=== PATIENT | female | born 1965 | race African-American/Black ===

== ENCOUNTER 2016-09-27 19:37 | Emergency (ER) | payer OTHER ==
[~2016-09-27] VITALS: Ht 162.6 cm; Wt 94.3 kg
[2016-09-27 20:00] VITALS: BP 111/66
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
[2016-09-27] MEDS ORDERED: IBUPROFEN600 MG ORAL (21:28)
[2016-09-27] MEDS ORDERED: CYCLOBENZAPRINE10 MG ORAL (21:28)
[2016-09-27 21:56] VITALS: BP 111/66
--- NOTE | 2016-09-28 11:37 | Diagnostic Imaging Report ---
Indication: PAIN Technique: One view of the chest Comparison: none Findings: Lungs and pleural spaces are clear. Heart size is normal. Impression: No acute process
== END 2016-09-27 21:56 | disposition home or self-care (01) ==
LOC: EMR 20:30
DX: S16.1XXA Strain of muscle, fascia and tendon at neck level, initial encounter (principal); S20.219A Contusion of unspecified front wall of thorax, initial encounter; S39.012A Strain of muscle, fascia and tendon of lower back, initial encounter; V43.62XA Car passenger injured in collision with other type car in traffic accident, initial encounter; Y93.9 Activity, unspecified; Y92.410 Unspecified street and highway as the place of occurrence of the external cause
CPT/HCPCS: 71010; 82962; 99284

== ENCOUNTER 2017-02-24 06:55 | Emergency (ER) | payer OTHER ==
[~2017-02-24] VITALS: Ht 162.6 cm; Wt 90.7 kg
[~2017-02-24 06:55] MED LIST: CYCLOBENZAPRINE10 MG ORAL; IBUPROFEN600 MG ORAL
[2017-02-24 07:05] VITALS: BP 141/98
--- NOTE | 2017-02-24 07:13 | Emergency Room Report ---
History of Present Illness General Chief Complaint: Asthma Source: Patient Present Illness HPI Patient 51year old female presented after increased difficulty breathing. Patient prior history of COPD. The patient denies taking inhalers regularly. Patient states that she is a smoker but hasn't smoked for the past few days. She denies any vomiting or diarrhea. Allergies: Coded Allergies: No Known Allergies (Unverified , 09/27/16) Patient History Past Medical History: see triage record Past Surgical History: Last Menstrual Period: n/a Reviewed Nursing Documentation: PMH: Agreed, PSxH: Agreed Nursing Documentation-PMH Hx Asthma: Yes Review of Systems All Other Systems: negative except mentioned in HPI Physical Exam Vital Signs Date Time Temp Pulse Resp B/P (MAP) Pulse Ox O2 Delivery O2 Flow Rate FiO2 02/24/17 07:03 98.1 87 21 153/99 100 Room Air General Appearance: well appearing, no apparent distress, alert, GCS 15, non- toxic Head: normocephalic, atraumatic ENT: hearing grossly normal, normal voice Neck: full range of motion, supple Respiratory: no rhonchi, no respiratory distress, wheezing Cardiovascular #1: normal peripheral pulses, regular rate, rhythm, no edema Gastrointestinal: normal inspection Musculoskeletal: normal inspection, back normal, no calf tenderness Neurologic: normal gait Psychiatric: mood/affect normal Skin: no rash Medical Decision Making Diagnostic Impression: Primary Impression: Asthma attack ER Course Patient presented for shortness of breath.Differential included but was not limited to anemia, pneumonia, pneumothorax, myocardial infarction, pericardial effusion, congestive heart failure, acidosis. Because of complexity of patient' s case laboratory testing and imaging studies were ordered. Patient's benign exam and does not appear to require any imaging or laboratory testing at this time. The patient was noted to have prior history of asthma. Patient is given nebulized albuterol with improvement. Patient was given steroids. Repeat lung exam showed improved breath sounds.At the time of discharge patient was noted to have good air movement. The patient is advised to follow up with primary care doctor in 1-2 days. Patient is advised to return if any worsening condition or if any changes in status that are concerning. Last Vital Signs Date Time Temp Pulse Resp B/P (MAP) Pulse Ox O2 Delivery O2 Flow Rate FiO2 02/24/17 07:03 98.1 87 21 153/99 100 Room Air Status: improved Disposition: HOME, SELF-CARE Condition: Stable Scripts Prednisone* (PREDNISONE*) 20 Mg Tablet 40 MG ORAL DAILY, #10 TAB Prov: Naren Atkins 02/24/17 Albuterol Sulfate* (ALBUTEROL SULFATE MDI*) 8.5 Gm Hfa.aer.ad 2 PUFF INH Q4H Y for cough/wheezing, #1 EA 0 Refills Prov: Naren Atkins 02/24/17 Naren Atkins Feb 24, 2017 07:13
[2017-02-24] MEDS ORDERED: Albuterol/Ipratropium 3ml neb HHN ONE (07:15)
[2017-02-24] MEDS ORDERED: Albuterol ud Inhalation HHN ONE (08:45)
[2017-02-24] MEDS ORDERED: ALBUTEROL SULF8.5 GM INH (09:05)
[2017-02-24] MEDS ORDERED: PREDNISONE20 MG ORAL (09:05)
[2017-02-24 09:15] VITALS: BP 140/86
== END 2017-02-24 09:15 | disposition home or self-care (01) ==
LOC: EMR 07:41
DX: J45.909 Unspecified asthma, uncomplicated (principal)
CPT/HCPCS: 94640; 94664; 99284; J7620